=== PATIENT | female | born 1970 | race Caucasian/White ===

== ENCOUNTER 2018-12-12 10:07 | Emergency (ER) | payer OTHER ==
[~2018-12-12] VITALS: Ht 162.6 cm; Wt 65.8 kg
--- NOTE | 2018-12-12 10:26 | NUR ---
PT A/OX4, PRESENTS TO THE ER C/O PALPITATIONS THAT STARTED ABOUT 5 DAYS AGO. PT STATES SHE IS CURRENTLY DETOXING FROM SUBOXONE AND ETOH. LAST ETOH DRINK WAS 16 OZ OF BEER THIS MORNING AROUND 0800. VSS. SECONDARY COMPLAINT: GENERALIZED BODY ACHE. PT DENIES SOB, N/V/D, DIZZINESS, HEADACHE.
--- NOTE | 2018-12-12 10:39 | NUR ---
APPLICATIONS DEVELOPER AT BEDSIDE.
--- NOTE | 2018-12-12 10:45 | NUR ---
JUANJOSE LU AT BEDSIDE FOR MSE.
[2018-12-12 10:50] LABS: BASOPHILS % (AUTO) 0.8 % (0.0-2.0); EOSINOPHILS # (AUTO) 0.1 K/uL (0.0-0.7); HEMATOCRIT 41.5 % (31.2-41.9); HEMOGLOBIN 14.6 g/dL (10.9-14.3); LYMPHOCYTES # (AUTO) 1.3 K/uL (20.0-40.0); MEAN CORPUSCULAR HEMOGLOBIN 32.7 uug (24.7-32.8); MEAN CORPUSCULAR HGB CONC 35 g/dL (32.3-35.6); MEAN CORPUSCULAR VOLUME 93.2 fL (75.5-95.3); MONOCYTES # (AUTO) 0.4 K/uL (2.0-10.0); MONOCYTES % (AUTO) 8.2 % (0.0-11.0); NEUTROPHILS # (AUTO) 2.7 K/uL (1.8-8.9); PLATELET COUNT (AUTO) 234 K/uL (179-408); RED BLOOD CELL COUNT(AUTO) 4.46 MIL/uL (3.63-4.92); WHITE BLOOD COUNT (AUTO) 4.6 K/uL (3.8-11.8)
--- NOTE | 2018-12-12 10:50 | NUR ---
OPERATOR CONTROL ROOM AT BEDSIDE.
[2018-12-12 10:54] LABS: *BILIRUBIN,URIN NEGATIVE (NEGATIVE); *BLOOD, URINE Trace-lysed (NEGATIVE); *CLARITY,URINE CLEAR (CLEAR); *COLOR,URINE YELLOW (YELLOW); *KETONES,URINE NEGATIVE (NEGATIVE); *UROBILINOGEN,URINE 0.2 E.U./dl (NORMAL); BACTERIA,URINE FEW /HPF (NONE SEEN); LEUKOCYTE ESTERASE ,URINE NEGATIVE (NEGATIVE); NITRITE, URINE NEGATIVE (NEGATIVE); PH,URINE 6.5 (5.0-8.0); RBC,URINE 0-3 /HPF (0-3); SQUAMOUS EPITHELIAL CELL,UR FEW /HPF (NONE SEEN); UGLUCOSE NEGATIVE (NEGATIVE); WBC,URINE 0-3 /HPF (0-3)
[2018-12-12 10:57] LABS: CARBON DIOXIDE 26 mmol/L (21-32); CHLORIDE 96 mmol/L (98-107); CREATININE 0.7 mg/dL (0.6-1.3); GLUCOSE 94 mg/dL (74-106); POTASSIUM 3.8 mmol/L (3.5-5.1); UREA NITROGEN, BLOOD 6 mg/dL (7-18)
[2018-12-12 11:01] LABS: *AMPHETAMINE, URINE NEGATIVE (NEGATIVE); *BARBITURATE, URINE NEGATIVE (NEGATIVE); *CANNABINOID, URINE NEGATIVE (NEGATIVE); *COCCAINE, URINE NEGATIVE (NEGATIVE); *OPIATE, URINE NEGATIVE (NEGATIVE); *PHENCYCLIDINE SCREEN,URINE NEGATIVE (NEGATIVE)
[2018-12-12 11:04] LABS: ETHANOL 240 MG/DL (0-0)
[2018-12-12 11:13] LABS: ALANINE AMINOTRANSFERASE 111 U/L (14-59); ALKALINE PHOSPHATASE 83 U/L (50-136); ASPARTATE AMINOTRANSFERASE 132 U/L (15-37); BILIRUBIN,DIRECT 0.2 mg/dL (0.0-0.2); BILIRUBIN,TOTAL 0.8 mg/dL (0.2-1.0)
[2018-12-12 11:15] LABS: ACETAMINOPHEN < 2.0 ug/mL (10-30)
--- NOTE | 2018-12-12 12:01 | NUR ---
CALLED EFREN BLEDSOE, CRISIS AQUATIC LIFE LABORER. ETA 1 HOUR.
--- NOTE | 2018-12-12 13:19 | NUR ---
EFREN BLEDSOE, CRISIS MERCHANDISE COLLECTOR, AT PT'S BEDSIDE FOR EVAL.
--- NOTE | 2018-12-12 13:40 | NUR ---
Patient discharged to home in stable conditon. Written and verbal after care instructions given. Patient verbalizes understanding of instructions. PT D/C UNDER CARE OF . ALL BELONGINGS W/ PT. PT SELF-AMBULATED W/O DIFFICULTY.
[2018-12-12 13:41] VITALS: BP 128/87
[2018-12-13 07:07] LABS: HEPATITIS B SURFACE AB Non Reactive (.); HEPATITIS B SURFACE AG Negative (Negative)
[2018-12-17 09:09] LABS: HEPATITIS A AB, TOTAL Negative (Negative)
== END 2018-12-12 13:42 | disposition home or self-care (01) ==
LOC: ER 10:07
DX: F41.9 Anxiety disorder, unspecified (principal); F19.90 Other psychoactive substance use, unspecified, uncomplicated; F17.210 Nicotine dependence, cigarettes, uncomplicated
CPT/HCPCS: 36415; 71045; 80048; 80076; 80307; 81001; 84484; 84702; 85025; 85379; 85730; 86706; 86708; 86803; 87340; 87536; 87806; 93005; 99284; G0480 ×2; G0481; 70030-TC; A4663